=== PATIENT | male | born 1935 | race Caucasian/White ===

== ENCOUNTER 2016-08-29 07:26 | Inpatient (IN) | payer MEDICARE, OTHER ==
[~2016-08-29] VITALS: Ht 180.3 cm; Wt 101.4 kg
[~2016-08-29 07:26] MED LIST: ACTOS30 MG PO; ALTACE5 MG PO; ASPIRIN81 MG PO; BACTRIM DS TABL1 TAB PO; BUMETANIDE0.5 MG PO; CARAFATE1 G/10 ML PO; COREG6.25 MG PO; GLIMEPIRIDE2 MG PO; GLUCOPHAGE500 MG PO; GLUCOVANCE 5/501 TAB PO; HYDROCODONE-APA1 TAB PO; K-TAB10 MEQ PO; PLAVIX75 MG PO; PROTONIX40 MG PO; ZOCOR80 MG PO
[2016-08-29 08:11] LABS: BASOPHILS 0.2 % (0.0-2.0); EOSINOPHILS 0.6 % (0-7); HEMATOCRIT 37.3 % (42.0-54.0); HEMOGLOBIN 11.8 g/dL (13.5-17.5); IMMATURE GRANULOCYTES 0.2 % (0-5); LYMPHOCYTES 5.1 % (15-50); MCH 27.8 pg (26.0-34.0); MCHC 31.6 g/dL (31.0-37.0); MEAN PLATELET VOLUME 10.2 fL (7.4-10.4); MONOCYTES 5.2 % (2-11); NEUTROPHILS 88.7 % (40-80); PLATELET COUNT 260 10x3/uL (130-400); RBC 4.24 10x6/uL (4.20-6.10); RDW 13.2 % (11.5-14.5); WBC 13.4 10x3/uL (4.8-10.8)
[2016-08-29 08:27] LABS: ALBUMIN 2.9 g/dL (3.4-5.0); ANION GAP 12.6 mmol/L (8-16); CALCIUM 8.6 mg/dL (8.5-10.1); CARBON DIOXIDE 26.1 mmol/L (21.0-32.0); CREATININE - SERUM 1.1 mg/dL (0.6-1.3); POTASSIUM - SERUM 4.7 mmol/L (3.5-5.1); PROTEIN - SERUM 7.2 g/dL (6.4-8.2)
[2016-08-29 08:34] LABS: TROPONIN-I 0.039 ng/mL (0.000-0.060)
[2016-08-29] MEDS ORDERED: COREG6.25 MG PO (10:51)
[2016-08-29] MEDS ORDERED: METFORMIN HCL500 M1 PO (10:52)
[2016-08-29 11:09] VITALS: BP 111/72; BMI 32.8
[2016-08-29 12:00] VITALS: BP 128/77
[2016-08-29 16:08] VITALS: BP 141/68
[2016-08-29 21:15] VITALS: BP 121/50
[2016-08-29 23:00] VITALS: BP 117/52
[2016-08-30 06:37] LABS: BASOPHILS 0.5 % (0.0-2.0); HEMATOCRIT 34.4 % (42.0-54.0); HEMOGLOBIN 10.8 g/dL (13.5-17.5); IMMATURE GRANULOCYTES 0.4 % (0-5); LYMPHOCYTES 9.7 % (15-50); MCH 27.5 pg (26.0-34.0); MCHC 31.4 g/dL (31.0-37.0); MCV 87.5 fL (80.0-100.0); MEAN PLATELET VOLUME 10.1 fL (7.4-10.4); MONOCYTES 13.8 % (2-11); NEUTROPHILS 72.6 % (40-80); PLATELET COUNT 260 10x3/uL (130-400); RBC 3.93 10x6/uL (4.20-6.10); RDW 13.3 % (11.5-14.5)
[2016-08-30 06:51] LABS: WBC 7.6 10x3/uL (4.8-10.8)
[2016-08-30 07:10] LABS: CALCIUM 8.9 mg/dL (8.5-10.1); CREATININE - SERUM 1.1 mg/dL (0.6-1.3)
[2016-08-30 08:00] VITALS: BP 126/60
[2016-08-30 12:40] VITALS: BP 104/43
[2016-08-30 12:48] VITALS: Ht 180.3 cm; Wt 101.4 kg
[2016-08-30 16:00] VITALS: BP 101/39
[2016-08-30 19:49] VITALS: BP 105/51
[2016-08-31 00:42] VITALS: BP 142/67
[2016-08-31 04:47] VITALS: BP 140/64
[2016-08-31 06:30] LABS: BASOPHILS 1.3 % (0.0-2.0); EOSINOPHILS 3.6 % (0-7); HEMATOCRIT 35.6 % (42.0-54.0); HEMOGLOBIN 11.3 g/dL (13.5-17.5); IMMATURE GRANULOCYTES 0.2 % (0-5); LYMPHOCYTES 12.7 % (15-50); MCH 27.8 pg (26.0-34.0); MCHC 31.7 g/dL (31.0-37.0); MCV 87.5 fL (80.0-100.0); MONOCYTES 16.7 % (2-11); NEUTROPHILS 65.5 % (40-80); PLATELET COUNT 238 10x3/uL (130-400); RBC 4.07 10x6/uL (4.20-6.10); RDW 13.2 % (11.5-14.5); WBC 6.4 10x3/uL (4.8-10.8)
[2016-08-31 06:58] LABS: ANION GAP 10.4 mmol/L (8-16); CALCIUM 8.9 mg/dL (8.5-10.1); CARBON DIOXIDE 33.8 mmol/L (21.0-32.0); CREATININE - SERUM 1.2 mg/dL (0.6-1.3); POTASSIUM - SERUM 4.2 mmol/L (3.5-5.1)
[2016-08-31 08:33] VITALS: BP 157/88
[2016-08-31 12:05] VITALS: BP 108/48
[2016-08-31 16:27] VITALS: BP 100/58
[2016-08-31 20:00] VITALS: BP 121/56
[2016-09-01] VITALS: BP 129/56
[2016-09-01 04:00] VITALS: BP 125/57
[2016-09-01 05:18] LABS: BASOPHILS 0.7 % (0.0-2.0); EOSINOPHILS 4.3 % (0-7); HEMATOCRIT 37.8 % (42.0-54.0); HEMOGLOBIN 11.9 g/dL (13.5-17.5); IMMATURE GRANULOCYTES 0.3 % (0-5); LYMPHOCYTES 10.6 % (15-50); MCH 27.4 pg (26.0-34.0); MCHC 31.5 g/dL (31.0-37.0); MCV 87.1 fL (80.0-100.0); MEAN PLATELET VOLUME 9.9 fL (7.4-10.4); MONOCYTES 18.4 % (2-11); NEUTROPHILS 65.7 % (40-80); PLATELET COUNT 263 10x3/uL (130-400); RBC 4.34 10x6/uL (4.20-6.10); RDW 13.1 % (11.5-14.5)
[2016-09-01 06:12] LABS: ANION GAP 11.2 mmol/L (8-16); CALCIUM 8.8 mg/dL (8.5-10.1); CARBON DIOXIDE 32.5 mmol/L (21.0-32.0); CREATININE - SERUM 1.2 mg/dL (0.6-1.3); POTASSIUM - SERUM 3.7 mmol/L (3.5-5.1)
[2016-09-01] MEDS ORDERED: BETAPACE 80 MG80 MG PO (07:41)
[2016-09-01] MEDS ORDERED: FUROSEMIDE20 MG PO (07:43)
[2016-09-01 08:02] VITALS: BP 110/72
--- NOTE | 2016-09-08 08:46 | EC ---
PATIENT:YONATAN COWAN DATE OF SERVICE: 08/29/16 SEX: M MEDICAL RECORD: [id number] DATE OF : 33 LOCATION:D.M2 D.212 AGE OF PATIENT: 81 ADMISSION DATE: 08/29/16 REFERRING PHYSICIAN: INTERPRETING PHYSICIAN: FEI CAN MD ECHOCARDIOGRAM REPORT ECHO CHARGES 4 ECHO COMPLETE CLINICAL DIAGNOSIS: CHF HX CABG X2 ECHOCARDIOGRAPHIC MEASUREMENTS (adult normal given) AC root (d.<3.7cm) 3.8 LV Septum d (<1.2 cm> 1.4 Valve Excursion 1.5 LV Septum (systole) 1.7 Left Atria (s.<4.0cm> 5.1 LVPW d(<1.2cm) 1.3 RV (d.<2.3cm) 3.9 LVPW (sytole) 1.9 LV diastole(<5.6CM) 6.0 MV E-F(>70mm/sec) LV systole 5.0 LVOT Diameter 1.0 MV exc.(>10mm) 2.0 Est.ejection fraction (50-75%) Pericardial Effusion N DOPPLER: LVIT A 110 E 85.0 LA RVSP 45 LVOT 139 AOP1/2T Asc. Ao 257 RVOT 103 RA PA 134 AV Gradient Peak 26.41 AV Mean 13.84 AV Area 0.3 MV Gradient Peak 4.82 MV Mean 1.72 MV Area COMMENTS: Senior Policy Analyst: Sylwia MATHEW Combination Machine Tool Setter:Willy Can TAPE# PACS DATE OF SERVICE: 08/29/2016 Echocardiogram FINDINGS: 1. Left ventricle chamber size is within normal limits. Left ventricular systolic function is preserved. Overall ejection fraction estimated at 60%. 2. Left atrium is enlarged at 5.1 cm. Right atrium and right ventricle chamber sizes are as well moderately enlarged. 3. Valvular structures: Aortic valve demonstrates severe calcific aortic ECHOCARDIOGRAM REPORT [id number] YONATAN COWAN stenosis, valve area calculates to 0.3 cm-squared. There is a gradient of 27 mm across the valve. The remaining valvular structures have normal structure and motion. 4. Doppler interrogation elsewise reveals mild mitral regurgitation, mild tricuspid regurgitation, no other valvular insufficiency or stenosis. Pulmonary systolic pressure is elevated estimated at 45 mmHg. 5. No evidence of pericardial effusion or left ventricular thrombus. TRANSINT:[id number] Voice Confirmation ID: [id number] DOCUMENT ID: [id number] FEI CAN MD at 0846 CC: URI SAXENA MD [id number] DICTATION DATE: 08/30/16 1004 BUSINESS PROFESSOR: 08/30/16 1042 DIS IN 09/01/16 [facility] [address] [place] [address]
--- NOTE | 2016-09-08 08:46 | CN ---
PATIENT NAME:YONATAN DAUGHERTY MEDICAL RECORD: [id number] : 33 LOCATION:D. D.2126 ADMIT DATE: 08/29/16 ACCOUNT: [id number] CONSULTING PHYSICIAN: FEI SHABAZZ MD REFERRING PHYSICIAN: URI SAXENA MD DATE OF CONSULTATION: 08/29/2016 Cardiology Consultation ADMITTING DIAGNOSES: 1. Congestive heart failure, chronic systolic dysfunction. 2. Cardiomyopathy. 3. Angina. 4. Coronary artery disease. 5. Atrial fibrillation, new onset. 6. Hyperlipidemia. 7. Status post coronary artery bypass graft surgery. 8. Hypertension. HISTORY OF PRESENT ILLNESS: Mr. Daugherty is well known to us with a past history of coronary artery disease, status post coronary artery bypass graft surgery in 2004. Last cardiac catheterization was in 2011 with no intervention. He has had greater than 1 week of increasing fluid retention, lower extremity edema and shortness of breath. He is as well in atrial fibrillation. He has not had a history of atrial fibrillation. His heart rate is in the 110-120 range with the atrial fibrillation. He has valvular heart disease, aortic stenosis. Last echo was 2 years ago, it showed mild aortic stenosis. PHYSICAL EXAMINATION: GENERAL APPEARANCE: Well-nourished, well-developed, appears stated age. Level of distress, comfortable. PSYCHIATRIC: Mental status, alert, normal affect. Orientation, oriented to time, place and person. EYES: Lids and conjunctiva, noninjected. No discharge, no pallor. ENT: Lips, teeth, gums, normal dentition. Oropharynx, no cyanosis, no pallor. NECK: Carotid arteries, bilateral normal upstroke, no bruits, no thrills. JUGULAR VEINS: No jugular venous pressure or distention. CERVICAL LYMPH NODES: Nontender, nonenlarged. THYROID: Not enlarged. Nontender. No nodules. LUNGS: He has bibasilar crackles compatible with pulmonary edema. CHEST: Normal curvature. No thoracic deformity. No chest wall tenderness. Percussion, resonant. Auscultation, clear. No wheezes, no rales, no rhonchi. CARDIOVASCULAR: Heart is irregularly, irregular with atrial fibrillation. EXTREMITIES: No cyanosis, no edema. Peripheral pulses, full and equal in all extremities, except as noted. No bruits appreciated. ABDOMEN: Soft, nondistended. Normal aorta. No bruit. Nontender. No masses. Liver, nontender, no hepatomegaly. Spleen, nontender, no splenomegaly. MUSCULOSKELETAL: No joint tenderness. No joint swelling. No erythema. NEUROLOGICAL: Normal gait, normal strength, normal tone. SKIN: Warm and dry. REVIEW OF SYSTEMS: The patient reports easy bruising but reports no swollen glands. The patient reports no fever, no night sweats, no significant weight gain, no significant weight loss. No significant exercise tolerance. The patient reports no dry eyes, no irritation, no vision change. Patient reports CONSULT REPORT [id number] YONATAN DAUGHERTY [place] no difficulty hearing and no ear pain. Patient reports no frequent nose bleeds or nose and sinus problems. Patient reports on arm pain on exertion. No shortness of breath while lying down. No history of heart murmur. Patient reports no cough, no wheezing or coughing up blood. Patient reports no abdominal pain, no vomiting. Normal appetite. No diarrhea and not vomiting blood. No nausea and no constipation. Patient reports no incontinence. No difficulty urinating. No hematuria. No increased frequency. Patient reports no muscle aches. No weakness, no arthralgias, no back pain. No swelling of the extremities. Patient reports no abnormal mole, no jaundice, no rashes. Reports no loss of consciousness. No weakness and no numbness. No seizures, dizziness, or headaches. The patient reports no depression, no sleep disturbance, feeling safe in a relationship and no alcohol abuse. Patient reports on fatigue. Reports no runny nose or sinus pressure. No itching, no hives, and no frequent sneezing. OVERALL IMPRESSION: 1. Congestive heart failure. He does have a history of a cardiomyopathy. He is clearly fluid overloaded with pulmonary edema. We will reassess his ejection fraction with an echocardiogram today as well reassess the valvular heart disease and aortic stenosis. 2. Ischemic heart disease. He does have a 10-year bypass grafts and he has been having some chest pressure. His troponin is negative and he has no acute changes on EKG, but of course ischemia is leading cause with new onset of the atrial fibrillation, most likely will evaluate with coronary angiography before the end of this admission. 3. Atrial fibrillation. His atrial fibrillation is of unknown duration. Would not want to cardiovert at this time, but we will rate control. He is on Coreg for blood pressure. Heart rate still in the 110-120 range; however, systolic blood pressures in the 110 range as well. We will add digoxin to the Coreg and possibly sotalol for better rate control. TRANSINT:[id number] Voice Confirmation ID: [id number] DOCUMENT ID: [id number] FEI SHABAZZ MD at 0846 CC: [id number] DICTATION DATE: 08/29/16 1203 TOBACCO STRIPPING MACHINE OPERATOR: 08/29/161936 DIS IN 09/01/16 [facility] [address] [place] [address]
== END 2016-09-01 10:48 | disposition home or self-care (01) | DRG 293 ==
LOC: D.ER 07:26 → D.M2 09:35
PROVIDERS: Emergency Medicine; ADMIT Family Medicine
DX: I11.0 Hypertensive heart disease with heart failure (principal); I50.23 Acute on chronic systolic (congestive) heart failure; I42.9 Cardiomyopathy, unspecified; I48.91 Unspecified atrial fibrillation; I25.119 Atherosclerotic heart disease of native coronary artery with unspecified angina pectoris; D50.0 Iron deficiency anemia secondary to blood loss (chronic); E11.9 Type 2 diabetes mellitus without complications; I35.0 Nonrheumatic aortic (valve) stenosis; J40 Bronchitis, not specified as acute or chronic; Z95.1 Presence of aortocoronary bypass graft; Z86.73 Personal history of transient ischemic attack (TIA), and cerebral infarction without residual deficits; Z87.891 Personal history of nicotine dependence

== ENCOUNTER → 2018-06-03 12:37 | Outpatient (CLI) | payer MEDICARE, OTHER ==
[2016-08-30 12:48] VITALS: BMI 32.7
[~2018-06-03 12:37] MED LIST changes: +BETAPACE 80 MG80 MG PO; +FUROSEMIDE20 MG PO; +METFORMIN HCL500 M1 PO; +PREMARIN0.625 MG PO; +XOPENEX HFA15 GM INH; +ZOLOFT25 MG PO
== END | disposition home or self-care (01) ==
LOC: D.CT 12:37
DX: R06.00 Dyspnea, unspecified (principal)

== ENCOUNTER 2018-06-12 09:52 | Inpatient (IN) | payer MEDICARE, OTHER ==
[~2018-06-12] VITALS: Ht 180.3 cm; Wt 105.2 kg
--- NOTE | ~2018-06-12 | MORECARE ---
CASE MANAGEMENT DISCHARGE SUMMARY PATIENT: YONATAN COWAN UNIT: [id number] ADM DATE: 06/12/18 AGE: 82 : 34 SEX: M ROOM/BED: D.1204 AUTHOR: CELI,DOC PHYSICIAN: REFERRING PHYSICIAN: URI SAXENA MD DATE OF SERVICE: 06/15/18 Discharge Plan Patient Name: YONATAN COWAN Facility: [facility]:[place] : 1935 Planned Disposition: Home Anticipated Discharge Date: 06/15/18 Discharge Date: Expected LOS: 3 Initial Reviewer: [email or web address] Initial Review Date: 06/12/2018 Generated: 06/15/18 6:40 pm Comments DCP- Discharge Planning Updated by [email or web address]: Lian Grier on 06/15/18 4:[address] Patient Name: YONATAN COWAN Encounter No: [id number] : 1935 Primary Insurance: MEDICARE A & B Anticipated DC Date: 06-15-2018 Planned Disposition: Home External Planned Provider: : David HINDSP follow-up note: Patient and family in agreement with discharge plan. No changes to plan. Case management will follow and assist as needed. IMM served. Information given to the daughter on "[employer] place [facility] [employer]", daughter states she may look into some help for her dad at a later date. Lian Grier DCP- Discharge Planning Updated by [email or web address]: Samantha Osborne on 06/12/18 9:[address] Patient Name: YONATAN COWAN Admission Status: ER Accout number: [id number] Admission Date: 06-12-2018 : 1935 Admission Diagnosis: Attending: URI SAXENA Current LOS: 1 Anticipated DC Date: Planned Disposition: Home Primary Insurance: MEDICARE A & B Discharge Planning Comments: CM met with patient at bedside after obtaining verbal consent. Patient states he plans on returning home after discharge. Patient states he will have family transport him home via private vehicle. Patient denies any discharge needs at this time. CM will continue to follow and assist as needed for discharge planning / needs. Technical Customer Support Specialist: Samantha Osborne DCPIA - Discharge Planning Initial Assessment Updated by [email or web address]: Samantha Osborne on 06/12/18 10:08 pm * Is the patient Alert and Oriented? Yes * How many steps to enter\\exit or inside your home? * PCP David * Pharmacy [facility] * Preadmission Environment Home with Family * ADLs Independent * Equipment Nebulizer * Other Equipment 02 * List name and contact numbers for known caregivers / representatives who currently or will assist patient after discharge: Staci Robertson [phone] * Verbal permission to speak to the caregivers and representatives has been obtained from the patient. N/A * Please name any agencies selected above. patient states he has had [facility] in past * Additional services required to return to the preadmission environment? No * Can the patient safely return to the preadmission environment? Yes * Has this patient been hospitalized within the prior 30 days at any hospital? No Coverage Notice Reviewer: [id number] Elias Grier Notice Issued Date-Time: 06/15/2018 15:57 Notice Type: IM Discharge Notice Notice Delivered To: Patient Relationship to Patient: Self Salesperson Furniture Name: Delivery Method: HAND - Hand Delivered Yvette Days: Prior Verbal Notification: Recipient Understood Notice: Yes Recipient Signature: Yes Med Rec Note Co-signed by Attending: Coverage Notice Comment: Last DP export: 06/12/18 9:14 Patient Name: YONATAN COWAN Page [id number] at 1740 All edits/amendments must be made on the electronic document DICTATION DATE: 06/15/181738 RECIPROCATING DRILL OPERATOR: FELIPE 06/15/181738 RPT#: [id number] DC DATE: STATUS: ADM IN [facility] [address] [place] [address] END OF REPORT
--- NOTE | ~2018-06-12 | MORECARE ---
CASE MANAGEMENT DISCHARGE SUMMARY PATIENT: YONATAN COWAN DWIGHT UNIT: [id number] ADM DATE: 06/12/18 AGE: 82 : 34 SEX: M ROOM/BED: D.1204 AUTHOR: RAHAT ALATORRE PHYSICIAN: REFERRING PHYSICIAN: URI SAXENA MD DATE OF SERVICE: 06/12/18 Discharge Plan Patient Name: YONATAN COWAN [facility] [facility] 1935 Planned Disposition: Anticipated Discharge Date: Discharge Date: Expected LOS: Initial Reviewer: [email or web address] Initial Review Date: 06/12/2018 Generated: 06/12/18 8:24 pm Patient Name: YONATAN COWAN Page 52402 at 1924 All edits/amendments must be made on the electronic document DICTATION DATE: 06/12/181922 PAINT GRINDER [place]: FELIPE 06/12/181922 RPT#: [id number] DC DATE: STATUS: ADM IN [facility] [address] [place] [address] END OF REPORT
--- NOTE | ~2018-06-12 | MORECARE ---
CASE MANAGEMENT DISCHARGE SUMMARY PATIENT: YONATAN COWAN DWIGHT UNIT: [id number] ADM DATE: 06/12/18 AGE: 82 : 34 SEX: M ROOM/BED: D.1204 AUTHOR: RAHAT ALATORRE PHYSICIAN: REFERRING PHYSICIAN: URI SAXENA MD DATE OF SERVICE: 06/12/18 Discharge Plan Patient Name: YONATAN COWAN [facility] [facility] 1935 Planned Disposition: Home Anticipated Discharge Date: Discharge Date: Expected LOS: Initial Reviewer: [email or web address] Initial Review Date: 06/12/2018 Generated: 06/12/18 11:07 pm Last DP export: 06/12/18 6:24 Patient Name: YONATAN COWAN Page 91756 at 2208 All edits/amendments must be made on the electronic document DICTATION DATE: 06/12/182206 STEAM PRESS TENDER: FELIPE 06/12/182206 RPT#: [id number] DC DATE: STATUS: ADM IN [facility] [address] [place] [address] END OF REPORT
--- NOTE | ~2018-06-12 | MORECARE ---
CASE MANAGEMENT DISCHARGE SUMMARY PATIENT: YONATAN COWAN UNIT: [id number] ADM DATE: 06/12/18 AGE: 82 : 34 SEX: M ROOM/BED: D.1204 AUTHOR: CELI,DOC PHYSICIAN: REFERRING PHYSICIAN: URI SAXENA MD DATE OF SERVICE: 06/12/18 Discharge Plan Patient Name: YONATAN COWAN Facility: [facility]:[place] : 1935 Planned Disposition: Home Anticipated Discharge Date: Discharge Date: Expected LOS: Initial Reviewer: [email or web address] Initial Review Date: 06/12/2018 Generated: 06/12/18 11:14 pm Comments DCP- Discharge Planning Updated by [email or web address]: Samantha Osborne on 06/12/18 9:[address] Patient Name: YONATAN COWAN Admission Status: ER Accout number: [id number] Admission Date: 06-12-2018 : 1935 Admission Diagnosis: Attending: URI SAXENA Current LOS: 1 Anticipated DC Date: Planned Disposition: Home Primary Insurance: MEDICARE A & B Discharge Planning Comments: CM met with patient at bedside after obtaining verbal consent. Patient states he plans on returning home after discharge. Patient states he will have family transport him home via private vehicle. Patient denies any discharge needs at this time. CM will continue to follow and assist as needed for discharge planning / needs. Metal Trades Instructor: Samantha Osborne DCPIA - Discharge Planning Initial Assessment Updated by [email or web address]: Samantha Osborne on 06/12/18 10:08 pm * Is the patient Alert and Oriented? Yes * How many steps to enter\exit or inside your home? * PCP David * Pharmacy [facility] * Preadmission Environment Home with Family * ADLs Independent * Equipment Nebulizer * Other Equipment 02 * List name and contact numbers for known caregivers / representatives who currently or will assist patient after discharge: Staci Robertson [phone] * Verbal permission to speak to the caregivers and representatives has been obtained from the patient. N/A * Please name any agencies selected above. patient states he has had [facility] in past * Additional services required to return to the preadmission environment? No * Can the patient safely return to the preadmission environment? Yes * Has this patient been hospitalized within the prior 30 days at any hospital? No Last DP export: 06/12/18 9:07 Patient Name: YONATAN COWAN Page 55144 at 2214 All edits/amendments must be made on the electronic document DICTATION DATE: 06/12/182212 WINDING INSPECTOR AND TESTER: FELIPE 06/12/182212 RPT#: [id number] DC DATE: STATUS: ADM IN [facility] [address] [place] [address] END OF REPORT
[~2018-06-12 09:52] MED LIST changes: -PREMARIN0.625 MG PO; -XOPENEX HFA15 GM INH; -ZOLOFT25 MG PO
[2018-06-12] MEDS ORDERED: FUROSEMIDE20 MG PO (11:03)
[2018-06-12] MEDS ORDERED: GLUCOPHAGE500 MG PO (11:05)
[2018-06-12] MEDS ORDERED: PROTONIX40 MG PO (11:07)
[2018-06-12] MEDS ORDERED: COREG6.25 MG PO (11:07)
[2018-06-12] MEDS ORDERED: ZOLOFT25 MG PO (11:07)
[2018-06-12] MEDS ORDERED: PREMARIN0.625 MG PO (11:08)
[2018-06-12 11:29] LABS: BASOPHILS 0.3 % (0-2); EOSINOPHILS 3.1 % (0-7); HEMATOCRIT 36.6 % (42.0-54.0); HEMOGLOBIN 11.2 g/dL (13.5-17.5); IMMATURE GRANULOCYTES 0.2 % (0-5); LYMPHOCYTES 10.7 % (15-50); MCH 28.6 pg (26.0-34.0); MCHC 30.6 g/dL (31.0-37.0); MCV 93.6 fL (80.0-100.0); MEAN PLATELET VOLUME 9.9 fL (7.4-10.4); MONOCYTES 12.1 % (2-11); NEUTROPHILS 73.6 % (40-80); PLATELET COUNT 215 10x3/uL (130-400); RBC 3.91 10x6/uL (4.20-6.10); RDW 13.9 % (11.5-14.5); WBC 6.5 10x3/uL (4.8-10.8)
[2018-06-12 11:41] LABS: ALBUMIN 3.2 g/dL (3.4-5.0); BILIRUBIN - TOTAL 0.77 mg/dL (0.2-1.3); CALCIUM 9.1 mg/dL (8.5-10.1); CARBON DIOXIDE 37.6 mmol/L (21.0-32.0); CREATININE - SERUM 1.1 mg/dL (0.6-1.3); POTASSIUM - SERUM 4.6 mmol/L (3.5-5.1); PROTEIN - SERUM 7.8 g/dL (6.4-8.2)
[2018-06-12 11:48] LABS: MAGNESIUM - SERUM 1.5 mg/dL (1.8-2.4)
[2018-06-12 12:23] VITALS: BP 152/70; BMI 32.4
[2018-06-12 12:41] VITALS: BP 136/66
[2018-06-12 17:37] VITALS: BP 121/57
[2018-06-12 19:00] VITALS: BP 112/48
[2018-06-12 23:43] VITALS: BP 125/68
[2018-06-13 04:13] VITALS: BP 105/46
[2018-06-13 07:34] VITALS: BP 103/46
[2018-06-13 10:47] VITALS: Ht 180.3 cm; Wt 105.2 kg
[2018-06-13 12:04] VITALS: BP 104/60
[2018-06-13 15:57] VITALS: BP 101/42
[2018-06-13 20:00] VITALS: BP 126/48
[2018-06-14] VITALS (7 sets, daily range): BP systolic 100–117; BP diastolic 40–54
[2018-06-14 06:44] LABS: BASOPHILS 0.2 % (0-2); EOSINOPHILS 3.5 % (0-7); HEMOGLOBIN 10.4 g/dL (13.5-17.5); IMMATURE GRANULOCYTES 0.2 % (0-5); LYMPHOCYTES 13.1 % (15-50); MCH 28.3 pg (26.0-34.0); MCHC 30.6 g/dL (31.0-37.0); MCV 92.6 fL (80.0-100.0); MEAN PLATELET VOLUME 9.8 fL (7.4-10.4); MONOCYTES 18.7 % (2-11); NEUTROPHILS 64.3 % (40-80); PLATELET COUNT 201 10x3/uL (130-400); RBC 3.67 10x6/uL (4.20-6.10); RDW 13.6 % (11.5-14.5)
[2018-06-14 06:49] LABS: WBC 4.8 10x3/uL (4.8-10.8)
[2018-06-14 06:59] LABS: CALCIUM 8.4 mg/dL (8.5-10.1); CARBON DIOXIDE 38.9 mmol/L (21.0-32.0); CHLORIDE - SERUM 98 mmol/L (98-107); GLUCOSE 84 mg/dL (74-106); SODIUM 141 mmol/L (136-145); eGFR NON AFRICAN AMERICAN 76 mL/min (90-120)
[2018-06-14 07:00] LABS: CALC OSMOLALITY 282 mosm/kg (275-300); POTASSIUM - SERUM 3.6 mmol/L (3.5-5.1); UREA NITROGEN 20 mg/dL (7-18)
[2018-06-15 04:00] VITALS: BP 126/56
[2018-06-15 07:35] LABS: BASOPHILS 0.7 % (0-2); EOSINOPHILS 3.3 % (0-7); HEMATOCRIT 35.7 % (42.0-54.0); HEMOGLOBIN 11.1 g/dL (13.5-17.5); IMMATURE GRANULOCYTES 0.2 % (0-5); LYMPHOCYTES 12.6 % (15-50); MCH 28.7 pg (26.0-34.0); MCHC 31.1 g/dL (31.0-37.0); MCV 92.2 fL (80.0-100.0); MEAN PLATELET VOLUME 9.5 fL (7.4-10.4); MONOCYTES 16.1 % (2-11); NEUTROPHILS 67.1 % (40-80); PLATELET COUNT 191 10x3/uL (130-400); RBC 3.87 10x6/uL (4.20-6.10); RDW 13.5 % (11.5-14.5); WBC 4.5 10x3/uL (4.8-10.8)
[2018-06-15 08:11] LABS: ALBUMIN 3.1 g/dL (3.4-5.0); BILIRUBIN - TOTAL 0.82 mg/dL (0.2-1.3); CALCIUM 8.9 mg/dL (8.5-10.1); CARBON DIOXIDE 38.8 mmol/L (21.0-32.0); CREATININE - SERUM 1.1 mg/dL (0.6-1.3); POTASSIUM - SERUM 3.8 mmol/L (3.5-5.1); PROTEIN - SERUM 7.7 g/dL (6.4-8.2)
[2018-06-15 08:18] VITALS: BP 118/52
[2018-06-15 12:01] VITALS: BP 105/48
[2018-06-15] MEDS ORDERED: XOPENEX HFA15 GM INH (15:18)
[2018-06-15 15:40] VITALS: BP 126/52
== END 2018-06-15 18:35 | disposition home or self-care (01) | DRG 291 ==
LOC: D.ER 09:52 → D.M3 10:36
PROVIDERS: Emergency Medicine; Family Medicine
DX: I11.0 Hypertensive heart disease with heart failure (principal); I50.21 Acute systolic (congestive) heart failure; E11.9 Type 2 diabetes mellitus without complications; I25.119 Atherosclerotic heart disease of native coronary artery with unspecified angina pectoris; Z95.1 Presence of aortocoronary bypass graft; K21.9 Gastro-esophageal reflux disease without esophagitis; I35.0 Nonrheumatic aortic (valve) stenosis